=== PATIENT | female | born 1960 | race Caucasian/White ===

== ENCOUNTER 2024-07-09 06:30 | Day surgery (SDC) | payer MEDICARE, MEDICAID, SELFPAY ==
[2024-07-08 13:12] VITALS: BMI 28.3
[2024-07-09 07:18] VITALS: BP 141/80; PULSE 78; RESP 18; TEMP 36.1; O2SAT 99; BMI 29.4
[2024-07-09] MEDS: SODIUM CHLORIDE 0.9% 500 ML 500 ML 80 ML IV (07:27)
[2024-07-09 07:41] LABS: Anion Gap 6 (7-16); BUN/Creatinine Ratio 16 Ratio (12-20); Blood Urea Nitrogen 14 mg/dL (9-23); Calcium 9.7 mg/dL (8.3-10.6); Chloride 109 mMol/L (98-107); Creatinine (Component) 0.9 mg/dL (0.6-1.3); Estimated Creatinine Clearance 63.8 mL/min (>60); Glucose 103 mg/dL (74-106); Osmolality,Calculated 285 (275-295); Potassium 4.1 mMol/L (3.4-5.1); Sodium 143 mMol/L (136-145); eGFR > 60 See Note
[2024-07-09 07:52] VITALS: BP 108/58; PULSE 70; RESP 18; TEMP 36.7; O2SAT 96
[2024-07-09 08:02] VITALS: BP 114/64; PULSE 69; RESP 18; O2SAT 99
[2024-07-09 08:12] VITALS: BP 105/61; PULSE 68; RESP 20; O2SAT 99
[2024-07-09 08:22] VITALS: BP 125/7; PULSE 68; RESP 20; TEMP 36.7; O2SAT 98
== END 2024-07-09 08:22 | disposition home or self-care (01) ==
PROVIDERS: Anesthesiology; PCP Student in an Organized Health Care Education/Training Program; Referring Provider Surgery; Visit Provider Surgery
PROC: 0DBE8ZX Excision of Large Intestine, Via Natural or Artificial Opening Endoscopic, Diagnostic (ICD-10-PCS; CPT 45380; principal; 2024-07-09 07:30)
DX: D12.5 Benign neoplasm of sigmoid colon (principal); D12.3 Benign neoplasm of transverse colon; K57.31 Diverticulosis of large intestine without perforation or abscess with bleeding; K64.0 First degree hemorrhoids; K62.89 Other specified diseases of anus and rectum; M19.90 Unspecified osteoarthritis, unspecified site; E03.9 Hypothyroidism, unspecified; Z80.0 Family history of malignant neoplasm of digestive organs; F17.200 Nicotine dependence, unspecified, uncomplicated; Z96.649 Presence of unspecified artificial hip joint; Z96.659 Presence of unspecified artificial knee joint; Z79.890 Hormone replacement therapy
CPT/HCPCS: 45385; 45380; 36415; 80048; 80053; A4649; J7040